=== PATIENT | male | born 1970 | race Asian ===

== ENCOUNTER 2018-04-26 11:09 | Day surgery (SDC) | payer BC ==
[~2018-04-26 11:09] MED LIST: GLYCOPYRROLATE 0.4 MG INJ; NEOSTIGMINE 3 MG/3 ML SYRINGE
[2018-04-26] MEDS: LACTATED RINGER'S 1,000 ML IV (11:30)
[2018-04-26] MEDS: VANCOMYCIN 1 GM 250 ML IVPB (12:24)
[2018-04-26] MEDS ORDERED: ACETAMINOPHEN 1000MG/100ML IV 100 ML (16:18)
[2018-04-26] MEDS: ACETAMINOPHEN 1000MG/100ML IV 100 ML IVPB (16:19)
[2018-04-26] MEDS ORDERED: ACETAMINOPHEN 325 MG TAB PO (17:00)
[2018-04-26] MEDS ORDERED: NALOXONE (0.4 MG/ML) INJ IV (17:00)
[2018-04-26] MEDS ORDERED: DIPHENHYDRAMINE 50 MG INJ IV ×2 (17:00→20:30)
[2018-04-26] MEDS ORDERED: ONDANSETRON 4 MG INJ IV (17:00)
[2018-04-26] MEDS ORDERED: CARISOPRODOL 350 MG TAB PO (17:00)
[2018-04-26] MEDS ORDERED: ZOLPIDEM 5 MG TAB PO (17:00)
[2018-04-26] MEDS ORDERED: AL HYDROX/MG HYDROX/SIMETH 30 ML CUP PO (17:00)
[2018-04-26] MEDS ORDERED: HYDROmorphONE 0.5 MG/0.5 ML SYG IV (17:00)
[2018-04-26] MEDS ORDERED: CEPASTAT LOZENGE MT (17:00)
[2018-04-26] MEDS ORDERED: BISACODYL 10 MG SUPP PR (17:00)
[2018-04-26] MEDS ORDERED: HEPARIN 1000 UNITS/ML 10 ML INJ (17:30)
[2018-04-26] MEDS ORDERED: SODIUM CL BACTERIOSTATIC 30 ML INJ (17:37)
[2018-04-26] MEDS ORDERED: CA CHLORIDE 10% 10 ML SYRINGE (17:37)
[2018-04-26] MEDS ORDERED: METOCLOPRAMIDE 10 MG INJ (17:39)
[2018-04-26] MEDS ORDERED: MIDAZOLAM 1 MG/ML 2 ML INJ (17:39)
[2018-04-26] MEDS ORDERED: PROPOFOL 20 ML (17:39)
[2018-04-26] MEDS ORDERED: FENTAnyl 50 MCG/ML VIAL (17:40)
[2018-04-26] MEDS ORDERED: ONDANSETRON 4 MG INJ (18:29)
[2018-04-26] MEDS ORDERED: EPHEDrine SULFATE 50 MG/5 ML SYG (18:29)
[2018-04-26] MEDS ORDERED: CEFAZOLIN 1 GM INJ (18:29)
[2018-04-26] MEDS: BUPIVACAINE 0.25%/EPI (SDV) 30 ML INJ (18:38)
[2018-04-26] MEDS: POLYMYXIN/BACITRACIN 1L IRRIG (18:38)
[2018-04-26] MEDS ORDERED: THROMBIN 5000 UNIT VIAL (18:52)
[2018-04-26] MEDS ORDERED: GELATIN SIZE 100 SPONGE (18:52)
[2018-04-26] MEDS: THROMBIN 5000 UNIT VIAL (18:59)
[2018-04-26] MEDS ORDERED: HYDROmorphONE 1 MG/5 ML IV SYRINGE IV ×2 (20:30)
[2018-04-26] MEDS: HYDROmorphONE 1 MG/5 ML IV SYRINGE IV (20:30)
[2018-04-26] MEDS ORDERED: MEPERIDINE 25 MG INJ IV (20:30)
[2018-04-26] MEDS ORDERED: OXYCODONE/ACETAMINOPHEN (5/325) TAB PO ×2 (20:30)
[2018-04-26] MEDS: ONDANSETRON 4 MG INJ IV (20:38)
[2018-04-26] MEDS: HYDROmorphONE 0.2 MG/ML PCA IV (20:43)
[2018-04-26] MEDS: GABAPENTIN 300 MG CAP PO (21:58)
[2018-04-26] MEDS: DOCUSATE SODIUM 100 MG CAP PO (21:58)
[2018-04-26] MEDS: D5W-0.45 NACL + KCL 20 MEQ 1,000 ML IV (21:58)
[2018-04-26] MEDS: DULOXETINE 30 MG CAP DR PO (21:58)
[2018-04-27] MEDS: VANCOMYCIN 1 GM (PMX) 250 ML IVPB (00:29)
[2018-04-27] MEDS: D5W-0.45 NACL + KCL 20 MEQ 1,000 ML IV (02:16)
[2018-04-27 05:21] LABS: ADD MAN DIFF? NO
[2018-04-27 05:25] LABS: WHITE BLOOD COUNT 5.9 10^3/ul (4.8-10.8)
[2018-04-27 05:25] LABS: BASOPHIL # 0.1 10^3/ul (0.0-0.1); BASOPHILS % 1.2 % (0.0-2.0); EOSINOPHILS # 0.1 10^3/ul (0.0-0.5); EOSINOPHILS % 2.2 % (0.0-7.0); HEMATOCRIT 40.1 % (42.0-52.0); HEMOGLOBIN 13.5 g/dl (14.0-18.0); LYMPHOCYTES # 1.2 10^3/ul (0.8-2.9); LYMPHOCYTES % 19.8 % (15.0-51.0); MEAN CORPUSCULAR HEMOGLOBIN 32.5 pg (29.0-33.0); MEAN CORPUSCULAR HGB CONC 33.7 g/dl (32.0-37.0); MEAN CORPUSCULAR VOLUME 96.4 fl (82.0-101.0); MEAN PLATELET VOLUME 9.6 fl (7.4-10.4); MONOCYTE # 0.5 10^3/ul (0.3-0.9); NEUTROPHIL # 4.1 10^3/ul (1.6-7.5); NEUTROPHILS % 68.6 % (39.0-77.0); PLATELET COUNT 174 10^3/UL (140-415); RED BLOOD COUNT 4.16 10^6/ul (4.70-6.10); RED CELL DISTRIBUTION WIDTH 11.9 % (11.5-14.5)
[2018-04-27 05:53] LABS: ANION GAP 8 (8-16); BLOOD UREA NITROGEN 22 mg/dl (7-20); CALCIUM 8.5 mg/dl (8.4-10.2); CARBON DIOXIDE 32 mmol/L (21-31); CHLORIDE 102 mmol/L (97-110); CREATININE 0.89 mg/dl (0.61-1.24); GLUCOSE 111 mg/dl (70-220); MAGNESIUM 2.2 mg/dl (1.7-2.5); POTASSIUM 4.1 mmol/L (3.5-5.1); SODIUM 138 mmol/L (135-144)
[2018-04-27] MEDS: DULOXETINE 30 MG CAP DR PO (08:34)
[2018-04-27] MEDS: DOCUSATE SODIUM 100 MG CAP PO (08:34)
[2018-04-27] MEDS: HYDROCODONE/APAP (10/325) TAB PO (09:59)
[2018-04-27] MEDS ORDERED: HYDROCODONE/APAP (10/325) TAB PO (10:00)
== END 2018-04-27 11:47 | disposition home or self-care (01) ==
LOC: SDS 04-27 11:47 → REC 11:09 → SDS 11:09 → MS1 21:22
DX: M48.061 Spinal stenosis, lumbar region without neurogenic claudication (principal); M54.16 Radiculopathy, lumbar region; G96.19 Other disorders of meninges, not elsewhere classified
CPT/HCPCS: 63267; 72100; 80048; 83735; 85025; 86999; 97116; 97161